=== PATIENT | male | born 1990 ===

== ENCOUNTER 2022-07-26 21:14 | Emergency (ER) | payer BC, SELFPAY ==
[2022-07-26 21:14] VITALS: BP 156/98; PULSE 99; RESP 16; TEMP 36.9; O2SAT 100; BMI 20.5
--- NOTE | 2022-07-26 21:19 | HMH.EDGENADL ---
Discharge Plan Disposition Patient Disposition: Home, Self-Care Condition: Good Prescriptions Prescriptions: No Action dextroamphetamine-amphetamine 20 mg capsule,extended release 24hr 40 mg PO DAILY Label Comments: TAKE 2 CAPSULES BY MOUTH ONCE DAILY IN THE MORNING (DO NOT CRUSH OR CHEW) Activity Restrictions/Add. Instructions Additional Instructions/Restrictions: You have been evaluated for palpitations. Please monitor your symptoms closely. Stay hydrated. Avoid caffeine. Follow-up with your primary care doctor. You may benefit from wearing a cardiac event monitor or having an echocardiogram of the heart performed. Return to the emergency department at once for any new or worsening symptoms, chest pain, difficulty breathing, other concerns. Clinical Impressions Clinical Impression: Palpitations Instructions Patient Instructions: DI for Palpitations Discharge ED Provider: Nelsy Osuna Adult HPI General Chief complaint: Arrhythmia/Palpitations Stated complaint: Palpitations Time Seen by Provider: 07/26/22 21:19 Mode of Arrival: EMS Source of Information: Patient Limitations: No Limitations History of Present Illness HPI narrative: 32-year-old male presenting to the emergency department with palpitations. Symptoms started around 1 hour prior to arrival while he was sitting at home. He felt like his heart was beating fast and skipping beats. Checked his pulse oximeter and his heart rate was greater than 130 beats a minute. He felt lightheaded. Symptoms did not improve. He called 911. Has had episodes like this before. Denies changes to sleep, diet, exercise, caffeine use. No caffeine today. Does not take medicines daily. He has had headaches recently. Happne most days out of the week. Sometimes in the morning. Symptoms in the evening. Started about 1 month ago. Happened a couple days a week. Described as a global, throbbing, tight sort of pain. No associated vision changes or sensitivity to lights. No nausea, vomiting. No recent illness, fevers, chills. He takes Adderall but there has been no change in his dose in a few years Related Data Home Medications Medication Instructions Recorded Confirmed dextroamphetamine-amphetamine ER 40 mg PO DAILY adhd 07/26/22 07/26/22 20 mg 24hr capsule,extend release Allergies Allergy/AdvReac Type Severity Reaction Status Date / Time clarithromycin [From Biaxin] Allergy Verified 07/26/22 23:05 peanut Allergy Verified 07/26/22 23:05 PFSH PFSH Social History Smoking Status: Never smoker ROS Obtained: Yes All systems reviewed & no additional complaints except as documented Constitutional Constitutional: Denies chills, Denies fatigue, Denies fever(s) and Reports headache(s) Eyes Eyes: Denies blurry vision, Denies loss of vision and Denies sensitivity to light ENT Ears, Nose, Mouth, and Throat: Denies dizziness, Reports headache(s), Denies neck pain and Denies sore throat Cardiovascular Cardiovascular: Denies chest pain, Denies dyspnea, Reports palpitations and Reports rapid heart rate Respiratory Respiratory: Denies cough and Denies dyspnea Gastrointestinal Gastrointestingal: Denies diarrhea, nausea or vomiting Musculoskeletal Musculoskeletal: Denies muscle cramps, Denies muscle weakness and Denies neck pain Integumentary/Breasts Skin/Breast: Denies dry skin and Denies rash Neurologic Neurologic: Denies dizziness, Reports headache(s) and Denies loss of vision Endocrine Endocrine: Denies fatigue, Denies heat intolerance, Reports palpitations and Denies polydipsia Physical Exam General General appearance: alert and in no apparent distress Head Head exam: atraumatic and normocephalic Eye Eye exam: Present normal appearance and EOMI ENT ENT exam: Present normal exam and normal oropharynx Respiratory Respiratory exam: Present normal lung sounds bilaterally; Absent respiratory distress or wheezes Cardiovascular Cardiov
--- NOTE | 2022-07-26 21:21 | CT_ITS ---
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 Radiation optimization: All CT scans at this facility use at least one of these dose optimization techniques: automated exposure control; mA and/or kV adjustment per patient size (includes targeted exams where dose is matched to clinical indication); or iterative reconstruction. COMPARISON: No relevant prior studies available. FINDINGS: Brain: Normal. No hemorrhage. Unremarkable white matter. No mass effect. Cerebral ventricles: No ventriculomegaly. Paranasal sinuses: Visualized sinuses are unremarkable. No fluid levels. Mastoid air cells: Visualized mastoid air cells are well aerated. Bones/joints: Unremarkable. No acute fracture. Soft tissues: Unremarkable. IMPRESSION: No acute intracranial abnormality.
--- NOTE | 2022-07-26 21:21 | XR_ITS ---
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 Views: 1 view. COMPARISON: No relevant prior studies available. FINDINGS: Lungs: Unremarkable. No consolidation. Pleural spaces: Unremarkable. No pleural effusion. No pneumothorax. Heart/Mediastinum: Unremarkable. No cardiomegaly. Bones/joints: Unremarkable. IMPRESSION: No acute findings.
--- NOTE | 2022-07-26 21:25 | ECG_ITS ---
APPROVED REPORT Exam: Resting ECG HR:92 bpm ECG Measurements Heart Rate 92 AXES [place] 139 P 81 QRSd 90 QRS 83 QT 334 T 74 QTc 384 Conclusion SINUS RHYTHM WITH SINUS ARRHYTHMIA NORMAL ECG UNCONFIRMED REPORT Electronically signed by : Jerman Kim MD 07/27/2022 19:29:16
[2022-07-26 22:00] VITALS: BP 149/101; PULSE 91; RESP 18; O2SAT 100
[2022-07-26 22:30] VITALS: BP 131/93; PULSE 100; RESP 23; O2SAT 100
--- NOTE | 2022-07-26 22:40 | PC.NURSE ---
Pt resting in bed with visitor at BS. Warm blanket given. No other needs or complaints at this time.
[2022-07-26 22:46] LABS: Basophils # 0.1 K/mm3 (0-0.2); Basophils % 0.9 % (0.1-2.0); Eosinophils # 0.2 K/mm3 (0.0-0.4); Eosinophils % 2.9 % (0.1-12.0); Hematocrit 44.1 % (42.0-52.0); Hemoglobin 15.7 g/dL (14.1-18.0); Lymphocytes # 2.1 K/mm3 (0.7-4.5); Lymphocytes % 37.5 % (10-50); Mean Corpuscular HGB Conc 35.5 g/dL (31.8-35.4); Mean Corpuscular Hemoglobin 34.3 pg (27.0-31.2); Mean Corpuscular Volume 96.4 fl (80-94); Mean Platelet Volume 7.5 fl (7.4-10.4); Monocytes # 0.2 K/mm3 (0.1-1.0); Monocytes % 4.3 % (1.7-9.3); Neutrophils % 54.5 % (37.0-80.0); Platelet Count 287 K/mm3 (142-424); Red Blood Count 4.57 M/mm3 (4.60-6.20); Red Cell Distribution Width 12.2 % (11.5-17.5); White Blood Count 5.6 K/mm3 (4.8-10.8)
[2022-07-26 23:12] LABS: Anion Gap 16.4 mEq/L (5-15); Blood Urea Nitrogen 12 mg/dl (9-20); Calcium 9.1 mg/dl (8.4-10.2); Carbon Dioxide 24 mmol/L (22.0-30.0); Chloride 98 mmol/L (98-107); Creatinine Clearance Estimated 92 mL/min (50-200); Estimated Glomerular Filt Rate 98 ml/min (>60); GFR (African American) 119 ML/MIN (>60); Glucose 113 mg/dl (74-100); Potassium 4.4 mmoL/L (3.5-5.1); Sodium 134 mmol/L (136-145)
[2022-07-26 23:30] VITALS: BP 133/89; PULSE 102; RESP 16; O2SAT 100
[2022-07-26 23:43] LABS: Thyroid Stimulating Hormone 2.15 uIU/mL (0.465-4.68)
[2022-07-26 23:55] LABS: Troponin I 0.02 ng/ml (0.00-0.034)
[2022-07-27 00:22] VITALS: BP 134/87; PULSE 100; RESP 16; TEMP 36.9; O2SAT 100
== END 2022-07-27 00:24 | disposition home or self-care (01) ==
PROVIDERS: Emergency Provider Emergency Medicine; PCP Family Medicine
DX: R00.2 Palpitations (principal); Z79.899 Other long term (current) drug therapy; F90.9 Attention-deficit hyperactivity disorder, unspecified type; Z88.1 Allergy status to other antibiotic agents
CPT/HCPCS: 70450; 71045; 80048; 84443; 84484; 85025; 93005; 99284